=== PATIENT | female | born 1945 | race Caucasian/White ===

== ENCOUNTER → 2017-06-24 | Outpatient (CLI) | payer MEDICARE, OTHER ==
[~2017-06-24] MED LIST: ALENSOL; ALPR1TAB2 OR; ATEN1TAB38 PO; DULO60CA OR
[2017-06-24 14:24] LABS: INR 0.95 (0.9-1.15); Partial Thromboplastin Time 25.4 sec (22.64-33.71); Prothrombin Time 10.3 sec (9.37-12.3)
[2017-06-24 14:25] LABS: Albumin 3.3 g/dL (3.4-5.0); BUN/Creatinine Ratio 17.7; Calcium 8.7 mg/dL (8.5-10.1); Potassium 4.6 mmol/L (3.5-5.1)
[2017-06-24 14:27] LABS: Urine Bacteria NONE SEEN /hpf (None Seen); Urine Blood Negative /uL (Negative); Urine Mucus FEW (None Seen); Urine Specific Gravity 1.024 (1.001-1.035); Urine WBC 3 /hpf (0 - 5)
[2017-06-24 14:28] LABS: Bilirubin, Total 0.3 mg/dL (0.2-1.0); Total Protein 6.8 g/dL (6.4-8.2)
[2017-06-24 14:32] LABS: Basophils # (auto) 0 uL; Basophils % (auto) 0.4 % (0.0-2.0); Eosinophils # (auto) 0.2 uL; Eosinophils % (auto) 4.4 % (0.0-7.0); Hematocrit 44.8 % (36.0-46.0); Hemoglobin 14.7 g/dL (12.2-16.2); Lymphocytes # (auto) 1.1 uL; Lymphocytes % (auto) 20.2 % (10.0-50.0); Mean Corpuscular Hemoglobin 29.4 pg (28.0-32.0); Mean Corpuscular Hgb Conc. 32.9 g/dL (32.0-36.0); Mean Corpuscular Volume 89.5 fL (80.0-100.0); Monocytes # (auto) 0.5 uL; Monocytes % (auto) 9.1 % (0.0-12.0); Neutrophils # (auto) 3.5 uL; Neutrophils % (auto) 65.9 % (37.0-80.0); Nucleated Red Blood Cells % 0.1 %; Platelet Count (auto) 318 10^3/uL (140-450); White Blood Cell 5.3 10^3/uL (4.4-10.8)
== END | disposition home or self-care (01) ==
LOC: LAB 13:44
PROVIDERS: ATTEND Orthopaedic Surgery
DX: S83.241D Other tear of medial meniscus, current injury, right knee, subsequent encounter (principal); Z79.01 Long term (current) use of anticoagulants; X58.XXXD Exposure to other specified factors, subsequent encounter
CPT/HCPCS: 36415; 80053; 81001; 85025; 85610; 85730

== ENCOUNTER 2018-03-23 06:13 | Inpatient (IN) | payer MEDICARE, OTHER ==
[2018-03-19 11:14] LABS: Basophils # (auto) 0 uL; Basophils % (auto) 0.3 % (0.0-2.0); Eosinophils # (auto) 0.2 uL; Eosinophils % (auto) 4.5 % (0.0-7.0); Hemoglobin 15.5 g/dL (12.2-16.2); Lymphocytes # (auto) 0.8 uL; Lymphocytes % (auto) 15.6 % (10.0-50.0); Mean Corpuscular Hemoglobin 30.5 pg (28.0-32.0); Mean Corpuscular Hgb Conc. 33.1 g/dL (32.0-36.0); Mean Corpuscular Volume 92.3 fL (80.0-100.0); Monocytes # (auto) 0.6 uL; Monocytes % (auto) 11.1 % (0.0-12.0); Neutrophils # (auto) 3.6 uL; Neutrophils % (auto) 68.5 % (37.0-80.0); Nucleated Red Blood Cells % 0.1 %; Platelet Count (auto) 301 10^3/uL (140-450); Red Blood Cells 5.09 10^6/uL (4.0-5.20); Red Cell Distribution Width 13.4 % (11.8-14.3); White Blood Cell 5.3 10^3/uL (4.4-10.8)
[2018-03-19 11:15] LABS: Urine Bacteria NONE SEEN /hpf (None Seen); Urine Blood Negative /uL (Negative); Urine Hyaline Cast FEW /lpf (0 - 2); Urine Mucus FEW (None Seen); Urine Specific Gravity 1.022 (1.001-1.035); Urine WBC 4 /hpf (0 - 5)
[2018-03-19 11:32] LABS: INR 0.93 (0.9-1.15); Partial Thromboplastin Time 25.8 sec (23.78-33.04)
[2018-03-19 11:46] LABS: Potassium 4.5 mmol/L (3.5-5.1)
[2018-03-19 12:03] LABS: Albumin 3.6 g/dL (3.4-5.0); BUN/Creatinine Ratio 23.4; Bilirubin, Total 0.3 mg/dL (0.2-1.0); Calcium 8.7 mg/dL (8.5-10.1); Total Protein 7.2 g/dL (6.4-8.2)
[~2018-03-23] VITALS: Ht 167.6 cm; Wt 114.3 kg
[~2018-03-23 06:13] MED LIST changes: -ALENSOL; -ALPR1TAB2 OR; +ASPI325T3 PO; +DULO30CA PO; -DULO60CA OR; +MELO1TAB73 PO; +QUET50TA PO; +SIMV-8 PO; +TRAZ150T79 PO
[2018-03-23] MEDS ORDERED: ceFAZolin 1GM/50ML 50 ML IV ONE ×2 (06:26→06:33)
[2018-03-23] MEDS ORDERED: SUCCINYLCHOLINE CHLORIDE 20 MG/ML 10ML VIAL IV ONE (06:49)
[2018-03-23] MEDS ORDERED: TETRACAINE 1% INJ 2 ML VIAL IJ ONE (07:00)
[2018-03-23] MEDS ORDERED: PROPOFOL 10 MG/ML 20 ML IV ONE ×4 (07:06→10:52)
[2018-03-23] MEDS ORDERED: ONDANSETRON HCL 4 MG/2 ML VIAL ONE (07:06)
[2018-03-23] MEDS ORDERED: fentaNYL CITRATE 100 MCG/2 ML VL ONE (07:06)
[2018-03-23] MEDS ORDERED: SODIUM CHLORIDE LOCK 10 ML ONE (07:06)
[2018-03-23] MEDS ORDERED: MORPHINE SULF(PF) 0.5MG/ML 10ML VIAL ONE (07:06)
[2018-03-23] MEDS ORDERED: MIDAZOLAM HCL 1MG/1ML-2 ML VIAL ONE (07:06)
[2018-03-23] MEDS ORDERED: BUPIVACAINE/DEXTROSE MPF 0.75% 2 ML AMP IT ONE (07:06)
[2018-03-23] MEDS ORDERED: LIDOCAINE 2% (LOCAL ANESTH.) PF 5ml SDV ONE (07:06)
[2018-03-23] MEDS ORDERED: TRANEXAMIC ACID 20 ML ONE (08:33)
[2018-03-23] MEDS ORDERED: METOCLOPRAMIDE HCL 5MG/ml INJ 2ml VIAL IV ONE (09:45)
[2018-03-23] MEDS ORDERED: HYDROmorphone HCL 2 MG/ML VL IV PRN (09:45)
[2018-03-23] MEDS ORDERED: diphenhdrAMINE HCL 50 MG/1 ML VL IV PRN (09:45)
[2018-03-23] MEDS ORDERED: KETOROLAC TROMETH 30 MG/ML 1ML VIAL IV ONE (09:45)
[2018-03-23] MEDS ORDERED: NALOXONE HCL 0.4 MG/ML VIAL IV PRN (09:45)
[2018-03-23] MEDS: LACTATED RINGER'S 1,000 ML IV SCH (12:22)
[2018-03-23] MEDS ORDERED: HYDROcodone-ACET 10/325MG TAB PO PRN (12:30)
[2018-03-23] MEDS ORDERED: TEMAZEPAM 15 MG CAP PO PRN (12:30)
[2018-03-23] MEDS ORDERED: ONDANSETRON HCL 4 MG/2 ML VIAL IV PRN (12:30)
[2018-03-23] MEDS ORDERED: ACETAMINOPHEN 325 MG TAB PO PRN (12:30)
--- NOTE | 2018-03-23 14:00 | NUR ---
MS admit from [facility] ARIAS admitted to /MS after report received. Patient oriented to MOE EMMANUEL RN primary RN, unit, room, bed, and unit policies regarding patient care and visiting hours. Patient weighed by bedscale and encouraged to call if they need something. All questions and concerns addressed, patient verbalized understanding.
[2018-03-23] MEDS: HYDROmorphone HCL 2 MG/ML VL IV PRN ×2 (15:33→20:11)
[2018-03-23] MEDS: ceFAZolin 1GM/50ML 50 ML IV SCH ×2 (15:33→20:10)
[2018-03-23] MEDS: SODIUM CHLOR 0.9% PF (SALINE LOCK) 10ML VIAL/SYR IV SCH ×2 (15:42→22:00)
[2018-03-23 17:00] VITALS: BP 119/72
--- NOTE | 2018-03-23 19:27 | NUR ---
Closing Note Patient resting in bed. Encouraged to call for assistance. Will endorse care to the ip counsel RN.
--- NOTE | 2018-03-23 20:30 | NUR ---
open note assumed care of pt. upon entering room pt eyes were closed, breathing was even and unlabored. no s/s distress observed. will continue to monitor. and update pt on plan of care at later time. call light in reach.
[2018-03-23 21:53] VITALS: BP 130/70
--- NOTE | 2018-03-23 22:10 | NUR ---
pt educated on appropriate use of incentive spirometer
[2018-03-23] MEDS: DOCUSATE SOD 100 MG CAP PO SCH (22:59)
[2018-03-23] MEDS: traZODone HCL 50 MG TAB PO SCH (23:00)
[2018-03-23] MEDS: oxyCODONE ER 10 MG TAB PO SCH (23:00)
[2018-03-23] MEDS: QUEtiapine FUMARATE 25 MG TAB PO SCH (23:00)
[2018-03-23] MEDS: ATENOLOL 25 MG TAB PO SCH (23:02)
[2018-03-24] MEDS: ceFAZolin 1GM/50ML 50 ML IV SCH (00:22)
[2018-03-24] MEDS: HYDROmorphone HCL 2 MG/ML VL IV PRN ×3 (03:17→19:45)
[2018-03-24 05:05] VITALS: BP 101/61
[2018-03-24] MEDS: SODIUM CHLOR 0.9% PF (SALINE LOCK) 10ML VIAL/SYR IV SCH ×3 (06:05→22:12)
--- NOTE | 2018-03-24 06:37 | NUR ---
pt has yet to pass gas. will endorse to day shift RN
--- NOTE | 2018-03-24 07:30 | NUR ---
Opening Shift Note Assuming care of patient at this time. Patient is awake, alert, and oriented x4. Patient states there is pain to the right knee only when she moves it. Patient shows no signs or symptoms of shortness of breath or distress. Patient is in bed with bed locked and lowered, side rails up x2. Patient instructed on the plan of care for today and to call for assistance as needed. Call light within reach. Will continue to monitor.
[2018-03-24 07:42] LABS: Hematocrit 40.6 % (36.0-46.0); Hemoglobin 13.3 g/dL (12.2-16.2)
[2018-03-24 08:18] VITALS: BP 116/66
[2018-03-24] MEDS ORDERED: ALPRAZolam 0.5 MG TAB PO PRN (10:00)
--- NOTE | 2018-03-24 10:17 | NUR ---
Re: Flatus Patient has stated that she has passed gas a couple of times this morning.
[2018-03-24] MEDS: DOCUSATE SOD 100 MG CAP PO SCH ×2 (10:24→22:13)
[2018-03-24] MEDS: DULoxetine HCL 30 MG CAP PO SCH (10:25)
[2018-03-24] MEDS: ENOXAPARIN SOD 40 MG/0.4 ML SYRINGE SC SCH (10:26)
[2018-03-24] MEDS: oxyCODONE ER 10 MG TAB PO SCH ×2 (10:26→22:13)
[2018-03-24] MEDS: LACTATED RINGER'S 1,000 ML IV SCH (10:31)
[2018-03-24 12:23] VITALS: BP 118/69
[2018-03-24 16:38] VITALS: BP 136/71
--- NOTE | 2018-03-24 18:12 | NUR ---
Re: Dressing Change Spoke with Femi, medicaid business analyst regarding dressing change. Orders were cancelled for daily dressing change and change dressing PRN. Discussed with Femi and decided that dressing should not be changed at this time. Dressing is still dry and intact, with no drainage. Will continue to monitor.
--- NOTE | 2018-03-24 18:15 | NUR ---
at bedside Dr. Ontiveros at bedside discussing plan of care with patient. Dr. Ontiveros has changed dressing. Dressing is clean, dry, and intact.
--- NOTE | 2018-03-24 19:08 | NUR ---
Closing Note Patient is resting in bed comfortably. Patient states there is a little pain with movement of the knee. Will possibly need pain medication per doctor's orders soon. Dr. Ontiveros has changed dressing today. Will continue to monitor.
--- NOTE | 2018-03-24 19:50 | NUR ---
Opening Shift Note Assumed care of patient, awake and alert. Complaints of 7/10 post op pain for which prn Dilaudid was administered. CPM machine on at 40 degrees on full speed. Patient states has been on since 11 am. Attempted to remove for rest but caused discomfort/pain. Left on but turned lower for comfort. As per order, will increase angle of CPM machine by 15 degrees daily up to 90 degrees. Instructed on POC and to call for assist PRN, will continue to monitor for changes Q1hr and PRN.
[2018-03-24 22:00] VITALS: BP 139/76
[2018-03-24] MEDS: ATENOLOL 25 MG TAB PO SCH (22:12)
[2018-03-24] MEDS: traZODone HCL 50 MG TAB PO SCH (22:12)
[2018-03-24] MEDS: QUEtiapine FUMARATE 25 MG TAB PO SCH (22:13)
[2018-03-25 05:00] VITALS: BP 137/67
[2018-03-25] MEDS: SODIUM CHLOR 0.9% PF (SALINE LOCK) 10ML VIAL/SYR IV SCH ×3 (06:05→21:36)
[2018-03-25] MEDS: LACTATED RINGER'S 1,000 ML IV SCH (06:05)
--- NOTE | 2018-03-25 07:02 | NUR ---
SHIFT END PT RESTING IN BED COMFORTABLY. DENIES PAIN AT THIS TIME. CPM MACHINE TURNED TO FULL SPEED AND ANGLE INCREASED FROM 40 TO 55 DEGREES PER ORDER. BED IN LOWEST LOCKED POSITION W/CALL LIGHT W/IN REACH. ENDORSING CARE TO DAY SHIFT RN.
[2018-03-25 08:39] LABS: Hematocrit 37.5 % (36.0-46.0); Hemoglobin 12.4 g/dL (12.2-16.2)
[2018-03-25 09:00] VITALS: BP 115/66
--- NOTE | 2018-03-25 09:00 | NUR ---
Opening Shift Note Assumed care of patient, awake and alert. No S/S of distress/SOB or pain. Instructed on POC and to call for assist PRN, will continue to monitor for changes Q1hr and PRN. Bed is in the lowest position and call light is within reach. CPM machine on at 55% angle.
[2018-03-25] MEDS: ENOXAPARIN SOD 40 MG/0.4 ML SYRINGE SC SCH (09:50)
[2018-03-25] MEDS: DULoxetine HCL 30 MG CAP PO SCH (09:50)
[2018-03-25] MEDS: DOCUSATE SOD 100 MG CAP PO SCH ×2 (09:51→21:36)
[2018-03-25] MEDS: oxyCODONE ER 10 MG TAB PO SCH ×2 (09:51→21:37)
--- NOTE | 2018-03-25 12:00 | NUR ---
Dr. Ontiveros at bedside to see patient Dr. Ontiveros at bedside to see patient. Dr. Ontiveros discusses POC with patient. Dr. Ontiveros changes dressing on patient's right knee. Per Dr. Ontiveros dressing is to be changed daily and/or PRN.
[2018-03-25 13:00] VITALS: BP 126/63
--- NOTE | 2018-03-25 14:13 | NUR ---
Called/paged Dr. Holt called re: plan of care. Waiting for call back. Continue care.
--- NOTE | 2018-03-25 14:15 | NUR ---
returned call Dr. Dr. Nash returned call, updated on patient status and reason for call, orders received for IV saline lock. Continue care. Addendum: 03/25/18 at 1637 by EMI DUMONT RN Dr. Holt
--- NOTE | 2018-03-25 15:50 | NUR ---
PICC line nurse verbalizes understanding of patient needing a PICC line. Waiting for PICC line nurse to complete request.
--- NOTE | 2018-03-25 15:50 | NUR ---
PICC line nurse called PICC line nurse called for midline placement after [address] IV. Patient is a hard stick. IV placement unsuccessful at this time. Patient's IV (20G on right forearm) became swollen and was unable to used. IV removed, catheter intact and patient tolerated well.
--- NOTE | 2018-03-25 16:32 | NUR ---
Midline Placement to right basilic. 18g/10cm in length. Flushes easily, blood return obtained from single port. Tolerated well. Primary RN notified. Lot#[id number].
[2018-03-25 17:06] VITALS: BP 140/66
[2018-03-25] MEDS: QUEtiapine FUMARATE 25 MG TAB PO SCH (21:36)
[2018-03-25] MEDS: traZODone HCL 50 MG TAB PO SCH (21:37)
[2018-03-25] MEDS: ATENOLOL 25 MG TAB PO SCH (21:38)
--- NOTE | 2018-03-25 21:45 | NUR ---
TYLENOL ADMINISTERED FOR LOW GRADE FEVER OF 99.9. WILL MONITOR
[2018-03-25 22:00] VITALS: BP 136/68
[2018-03-26 05:00] VITALS: BP 121/71
[2018-03-26] MEDS: SODIUM CHLOR 0.9% PF (SALINE LOCK) 10ML VIAL/SYR IV SCH ×3 (06:00→23:27)
[2018-03-26 06:32] LABS: Hemoglobin 12.3 g/dL (12.2-16.2)
--- NOTE | 2018-03-26 07:29 | NUR ---
CARE ENDORSED TO DAY RN. CPM INCREASED FROM 55 TO 70 DEGREES.
--- NOTE | 2018-03-26 08:00 | NUR ---
Opening Shift Note Assumed care of patient, awake and alert. No S/S of distress/SOB or pain. Instructed on POC and to call for assist PRN, will continue to monitor for changes Q1hr and PRN. Bed is in the lowest position and call light is within reach. CPM machine on at 70% angle.
[2018-03-26 09:24] VITALS: BP 143/73
[2018-03-26] MEDS: DOCUSATE SOD 100 MG CAP PO SCH ×2 (09:55→23:27)
[2018-03-26] MEDS: ENOXAPARIN SOD 40 MG/0.4 ML SYRINGE SC SCH (09:56)
[2018-03-26] MEDS: DULoxetine HCL 30 MG CAP PO SCH (09:56)
[2018-03-26] MEDS: oxyCODONE ER 10 MG TAB PO SCH ×2 (09:57→23:28)
[2018-03-26 13:00] VITALS: BP 116/64
--- NOTE | 2018-03-26 14:01 | NUR ---
assessment Patient is a 73 year old female who is alert and oriented. Patients cognitive abilities are intact. Prior to admission patient lived home with family and functioned independently. Patient informed me she is able to care for her own ADLs. Per patient she will return home to her prior living arrangements post discharge and family will transport her home. Patient has a fww and a cane for home use. Patient was admitted for knee replacement. Patient will need home health PT and a CPM on discharge. I informed patient she has a right to speak to a health social work professor regarding all care. I informed patient she has a right to participate in any and all discharge planning. Patient is aware of visiting hours on the hospital floor. I informed patient she has a right to privacy. Patient has a POA and advanced directive. Patient verbalized understanding and agreed to discharge plan. Addendum: 03/26/18 at 1409 by Carlotta MCLEAN Amended: Links added.
--- NOTE | 2018-03-26 14:06 | NUR ---
re-assessment Per consult [facility] for PT and CPM. Patient has been given a list of medicare providers. Per patient [facility] to provide service. MD order has been sent to [facility]. Per Laura at [facility] service will start on 03/27/18. Patient to take CPM at bedside. Addendum: 03/26/18 at 1409 by Carlotta Hopson Amended: Links added.
--- NOTE | 2018-03-26 16:05 | NUR ---
Called/paged Dr. Holt called re:plan of care/ clarification of orders . Waiting for call back. Continue care.
--- NOTE | 2018-03-26 16:14 | NUR ---
Waiting for call back from Dr. sarmiento Waiting for call back from Dr. sarmiento to report blood pressure of 157/75 and no PRN medications ordered at this time
--- NOTE | 2018-03-26 16:18 | NUR ---
Dr. Holt aware of patient's blood pressure Dr. Holt aware of patient's blood pressure (157/75) with no PRN medications ordered No new orders received at this time
--- NOTE | 2018-03-26 16:18 | NUR ---
Telephone Order received from Dr. Holt Telephone Order received from Dr. Holt to Dc patient's del rosario catheter. Order to be followed
--- NOTE | 2018-03-26 17:08 | NUR ---
Del Rosario catheter dc'd Order to discontinue del rosario catheter. Del Rosario dc'd with clean technique following deflation of balloon. Patient tolerated well with no complaints of pain. Continue care.
--- NOTE | 2018-03-26 17:09 | NUR ---
DRESSING CHANGED RIGHT KNEE DRESSING FROM SURGICAL PROCEDURE CHANGED. DRESSING IS CLEAN, DRY AND INTACT. PATIENT TOLERATED WELL. WILL CONTINUE TO MONITOR.
[2018-03-26 17:13] VITALS: BP 157/75
--- NOTE | 2018-03-26 18:31 | NUR ---
Cooling measures applied Cooling measures applied for temperature of 99.2 as a preventive due to previous low-grade fever of 99.9. Will continue to monitor
--- NOTE | 2018-03-26 19:00 | NUR ---
Opening Shift Note Assumed care of the patient from the day shift RN. The patient is A&Ox4, no signs or symptoms of distress. The patient's is still on the CPM machine and her right knee incision is asymptomatic. Educated the patient on POC and patient verbalized understanding. The patient's call light is within reach and bed is in the lowest, locked position. Will round hourly and continue to monitor.
[2018-03-26 20:00] VITALS: BP 146/73
[2018-03-26 22:00] VITALS: BP 146/73
[2018-03-26] MEDS: QUEtiapine FUMARATE 25 MG TAB PO SCH (23:28)
[2018-03-26] MEDS: traZODone HCL 50 MG TAB PO SCH (23:28)
[2018-03-26] MEDS: ATENOLOL 25 MG TAB PO SCH (23:29)
[2018-03-27 04:55] VITALS: BP 150/60
[2018-03-27] MEDS: SODIUM CHLOR 0.9% PF (SALINE LOCK) 10ML VIAL/SYR IV SCH ×2 (06:09→13:42)
[2018-03-27 07:30] LABS: Hemoglobin 12.7 g/dL (12.2-16.2)
[2018-03-27 08:00] VITALS: BP 146/73
--- NOTE | 2018-03-27 08:00 | NUR ---
OPENING NOTE ASSUMED CARE OF PATIENT AWAKE AND ALERT, SITTING UP IN BED EATING BREAKFAST. CPM MACHINE IS ON AND PATIENT IS TOLERATING WELL. NO S/S OF DISTRESS NOTED. PT IS COMPLAINING OF MILD 2/10 PAIN TO RIGHT KNEE BUT STATES IT IS TOLERABLE. PT UPDATED ON POC AND ALL QUESTIONS ANSWERED. BED IS IN LOWEST, LOCKED POSITION WITH SIDE RAILS UP X2 AND CALL LIGHT WITHIN REACH. WILL CONTINUE TO MONITOR Q1H AND PRN.
[2018-03-27 10:12] VITALS: BP 138/63
[2018-03-27] MEDS: DULoxetine HCL 30 MG CAP PO SCH (10:28)
[2018-03-27] MEDS: ENOXAPARIN SOD 40 MG/0.4 ML SYRINGE SC SCH (10:28)
[2018-03-27] MEDS: DOCUSATE SOD 100 MG CAP PO SCH (10:28)
[2018-03-27] MEDS: oxyCODONE ER 10 MG TAB PO SCH (10:29)
--- NOTE | 2018-03-27 12:30 | NUR ---
DRESSING CHANGE DRESSING TO RIGHT KNEE CHANGED PER MD ORDER. SITE IS WELL APPROXIMATED, JOEL INTACT. SITE IS FREE FROM S/S OF INFECTION. PRIMAPORE DRESSING APPLIED. PT TOLERATED WELL.
[2018-03-27 13:00] VITALS: BP 109/63
--- NOTE | 2018-03-27 13:15 | NUR ---
DISCHARGE DR. BUTLER ON UNIT. PT TO BE DC'D HOME TODAY.
[2018-03-27 13:16] VITALS: BP 146/73
--- NOTE | 2018-03-27 13:30 | NUR ---
HOME HEALTH CALLED [facility] TO INFORM OF PATIENTS DC, SPOKE TO SAVITA. PER SAVITA, SHE WILL INFORM LIFE TEACHER.
--- NOTE | 2018-03-27 14:10 | NUR ---
HOME HEALTH RECEIVED PHONE CALL FROM DALE AT [facility]. AWARE THAT PATIENT IS BEING DC'D HOME TODAY.
== END 2018-03-27 17:41 | disposition home health service (06) | DRG 470 ==
LOC: SUR 06:13 → WEST WING 14:06
PROVIDERS: ADMIT Orthopaedic Surgery; ATTEND Internal Medicine
PROC: 0MBN0ZZ Excision of Right Knee Bursa and Ligament, Open Approach (ICD-10-PCS; 2018-03-23)
PROC: 0KNR0ZZ Release Left Upper Leg Muscle, Open Approach (ICD-10-PCS; 2018-03-23)
PROC: 0SRC0J9 Replacement of Right Knee Joint with Synthetic Substitute, Cemented, Open Approach (ICD-10-PCS; principal; 2018-03-23 07:45)
DX: M17.11 Unilateral primary osteoarthritis, right knee (principal); Z68.41 Body mass index [BMI] 40.0-44.9, adult; M70.41 Prepatellar bursitis, right knee; E66.01 Morbid (severe) obesity due to excess calories; M19.90 Unspecified osteoarthritis, unspecified site; M62.461 Contracture of muscle, right lower leg; I10 Essential (primary) hypertension; F41.9 Anxiety disorder, unspecified; Z98.49 Cataract extraction status, unspecified eye; Z80.49 Family history of malignant neoplasm of other genital organs; Z82.0 Family history of epilepsy and other diseases of the nervous system; Z90.49 Acquired absence of other specified parts of digestive tract; Z90.710 Acquired absence of both cervix and uterus
CPT/HCPCS: 36415; 73562; 80053; 81001; 85014; 85018; 85025; 85610; 85730; 86850; 86900; 86901; 97116; 97163; 97530; A6257; G0378; J0330; J0690; J1885; J2001; J2250; J2405; J2704

== ENCOUNTER 2024-04-30 09:23 | Day surgery (SDC) | payer MEDICARE, OTHER ==
[2024-04-25 15:19] LABS: Basophils # (auto) 0 10 ^3/uL (0-0.2); Basophils % (auto) 0.4 % (0.0-2.0); Eosinophils # (auto) 0.1 10 ^3/uL (0-0.8); Eosinophils % (auto) 1.3 % (0.0-7.0); Hematocrit 45.3 % (36.0-46.0); Hemoglobin 15.1 g/dL (12.2-16.2); Lymphocytes # (auto) 0.7 10 ^3/uL (0.4-5.4); Lymphocytes % (auto) 12.5 % (10.0-50.0); Mean Corpuscular Hemoglobin 36.2 pg (28.0-32.0); Mean Corpuscular Hgb Conc. 33.3 g/dL (32.0-36.0); Mean Corpuscular Volume 108.6 fL (80.0-100.0); Monocytes # (auto) 0.5 10 ^3/uL (0-1.3); Monocytes % (auto) 9.2 % (0.0-12.0); Neutrophils # (auto) 4.1 10 ^3/uL (1.6-8.6); Neutrophils % (auto) 76.6 % (37.0-80.0); Nucleated Red Blood Cells % 0.2 %; Platelet Count (auto) 288 10^3/uL (140-450); Red Blood Cells 4.17 10^6/uL (4.0-5.20); Red Cell Distribution Width 15.9 % (11.8-14.3); White Blood Cell 5.3 10^3/uL (4.4-10.8)
[2024-04-25 15:29] LABS: INR 1.01 (0.9-1.15); Prothrombin Time 10.7 sec (9.3-11.8)
[2024-04-25 16:05] LABS: Alanine Aminotransferase 17 U/L (7-40); Albumin 4.1 g/dL (3.2-4.8); Alkaline Phosphatase 64 U/L (46-116); Anion Gap 9 (5-15); Aspartate Aminotransferase 31 U/L (13-40); BUN/Creatinine Ratio 17.9 (10.0-20.0); Bilirubin, Total 0.7 mg/dL (0.2-1.0); Blood Urea Nitrogen 10 mg/dL (9-23); Carbon Dioxide 25 mmol/L (20-31); Glucose 91 mg/dL (74-106); Potassium 4.3 mmol/L (3.5-5.1); Sodium 143 mmol/L (136-145)
[2024-04-25 16:09] LABS: Chloride 109 mmol/L (98-107)
[~2024-04-30] VITALS: Ht 167.6 cm; Wt 76.2 kg
[~2024-04-30 09:23] MED LIST changes: -ASPI325T3 PO; -MELO1TAB73 PO; -QUET50TA PO; -SIMV-8 PO; +SIMV20TA20 PO; -TRAZ150T79 PO; +TRAZ1TAB12 PO
[2024-04-30] MEDS ORDERED: diphenhdrAMINE HCL 50 MG/1 ML VL ONE (11:09)
[2024-04-30] MEDS ORDERED: LIDOCAINE VISCOUS 2% 15ML UD ONE (11:16)
[2024-04-30] MEDS: MIDAZOLAM HCL 2MG/2ML 2ml VIAL (1mg/ml) ONE (11:26)
[2024-04-30] MEDS: fentaNYL CITRATE 100 MCG/2 ML VL ONE (11:26)
[2024-04-30] MEDS: MIDAZOLAM HCL 2MG/2ML 2ml VIAL (1mg/ml) IV ONE (11:30)
--- NOTE | 2024-04-30 11:40 | DVHNC2 ---
Procedure - DATE OF PROCEDURE: April 30, 2024 SURGEON: JUNIOR CAMPBELL MD REFERRING PROVIDER: Dr. Priya MOHR PROCEDURE PERFORMED: 1. Esophagogastroduodenoscopy with cold biopsy with moderate sedation PRE-PROCEDURE DIAGNOSIS: 1. Abdominal pain 2. Nausea and vomiting 3. Unintentional weight loss POSTPROCEDURE DIAGNOSIS: 1. Mild erosive esophagitis Z-line at 36 cm 2. Mild erosive gastritis 3. Mild erosive duodenitis INDICATIONS FOR PROCEDURE: The patient is a 79-year-old female presents for outpatient endoscopy for weight loss, abdominal pain and nausea and vomiting.. MEDICATIONS USED: 5 mg Versed IV and 50 mcg of fentanyl IV DETAILS OF THE PROCEDURE: Informed consent was obtained after risks, benefits, and alternatives, were discussed at length with the patient. The patient gave consent to the procedure as well as the medication used for sedation. The patient was placed in the left lateral decubitus position. An Olympus endoscope was inserted into the oropharynx into the esophagus, then into the stomach, then into the DB needle polyp and duodenum. The scope was then withdrawn and the mucosa carefully evaluated. Retained secretions were suctioned or washed off. The patient had mild duodenitis. Biopsies were taken for pathology. The scope was then withdrawn the stomach showed mild erosive gastritis of the body and antrum biopsies were taken. Retroflexion showed no abnormalities. The GE junction showed mild erosive esophagitis at 36 cm. Biopsies were taken. The scope was then withdrawn and the procedure completed the patient tolerated the procedure well. IMPRESSION: 1. Mild erosive esophagitis, gastritis, and duodenitis 2. No findings to explain the patient's weight loss, nausea or vomiting. RECOMMENDATIONS: 1. Follow up with procedure results 2. Consider further work for the patient's symptoms such as with imaging, and/or gastric emptying test 3. Caution with aspirin, NSAIDs and anticoagulants 4. Follow up with primary care physician 5. Patient should be on a proton pump inhibitor daily to twice daily 30 minutes before meals I WOULD LIKE TO THANK DR. NUNES FOR THIS REFERRAL JUNIOR CAMPBELL MD Apr 30, 2024 11:40
[2024-04-30 11:44] VITALS: PULSE 100; RESP 17; TEMP 98; O2SAT 100
[2024-04-30 12:35] VITALS: BP 138/70; PULSE 84; RESP 14; O2SAT 95
== END 2024-04-30 12:44 | disposition home or self-care (01) ==
LOC: GI 09:23
PROVIDERS: ATTEND Specialist
DX: R63.4 Abnormal weight loss (principal); K29.50 Unspecified chronic gastritis without bleeding; K26.9 Duodenal ulcer, unspecified as acute or chronic, without hemorrhage or perforation; K22.10 Ulcer of esophagus without bleeding; R10.9 Unspecified abdominal pain; R11.2 Nausea with vomiting, unspecified; R71.8 Other abnormality of red blood cells; F32.A Depression, unspecified; I34.1 Nonrheumatic mitral (valve) prolapse; Z68.27 Body mass index [BMI] 27.0-27.9, adult; Z79.899 Other long term (current) drug therapy; Z96.653 Presence of artificial knee joint, bilateral; Z96.641 Presence of right artificial hip joint; Z96.612 Presence of left artificial shoulder joint; Z90.710 Acquired absence of both cervix and uterus; Z98.42 Cataract extraction status, left eye; Z98.41 Cataract extraction status, right eye; Z90.49 Acquired absence of other specified parts of digestive tract; Z98.890 Other specified postprocedural states; Z88.8 Allergy status to other drugs, medicaments and biological substances
CPT/HCPCS: 36415; 43239; 80053; 85025; 85610; 85730; 88305; 88312; 88342; J2250; J3010